=== PATIENT | male | born 1980 | race Caucasian/White ===

== ENCOUNTER → 2018-10-13 | Emergency (ER) | payer SELFPAY ==
[~2018-10-13] VITALS: Ht 165.1 cm; Wt 66.5 kg
[~2018-10-13] MED LIST: LORAZEPAM 2 MG INJ IM ONE
[2018-10-13 08:27] VITALS: Ht 165.1 cm; Wt 66.5 kg
--- NOTE | 2018-10-13 11:55 | ERD ---
ER Documentation Chief Complaint Chief Complaint c/o tingling, nausea, feeling uneasiness, bodyache. used Meth 2 hours [employer]. HPI This is a 38-year-old male who presents for evaluation of nausea and anxiety this is in the setting of using methamphetamine about 2 hours ago. He denies any other drug use, he has not had a fever, he denies abdominal pain. ROS All systems reviewed and are negative except as per history of present illness. Medications Home Meds No Active Prescriptions or Reported Meds Allergies Allergies: Coded Allergies: No Known Allergy (Unverified , 10/13/18) PMhx/Soc Medical and Surgical Hx: pt denies Medical Hx, pt denies Surgical Hx Hx Alcohol Use: Yes Hx Substance Use: Yes Hx Tobacco Use: Yes Smoking Status: Current some day smoker Physical Exam Vitals Vital Signs Date Temp Pulse Resp B/P (MAP) Pulse Ox O2 O2 Flow FiO2 Time Delivery Rate 10/13/18 83 18 107/89 96 Room Air 11:23 (95) 10/13/18 98.1 104 20 131/81 99 08:27 (98) Physical Exam Const: Anxious disheveled appearing Head: Atraumatic Eyes: Normal Conjunctiva ENT: Normal External Ears, Nose and Mouth. Neck: Full range of motion. No meningismus. Resp: Clear to auscultation bilaterally, no wheezes rales or rhonchi Cardio: Regular rate and rhythm, no murmurs Abd: Soft, non tender, non distended, no rebound or guarding. Normal bowel sounds Skin: No petechiae or rashes Back: No midline or flank tenderness Ext: No cyanosis, or edema Neur: Awake and alert Psych: Normal Mood and Affect Results 24 hrs Current Medications Medications Dose Sig/Kassandra Start Time Status Last (Trade) Ordered Route PRN Stop Time Admin Dose Reason Admin Lorazepam 1 mg ONCE ONCE 10/13/18 DC 10/13/18 (Ativan) IM 09:00 09:10 10/13/18 09:01 Procedures/MDM 38-year-old male presents for evaluation of methamphetamine intoxication, patient initially appeared anxious, he was given benzodiazepines for symptomatic care and felt significantly better, on reevaluation, he was sleeping and comfortable in no distress. He denies any chest pain. He felt comfortable with discharge home, he states that he is currently living with his sister, at discharge, he was ambulatory with steady gait and in no distress. Departure Diagnosis: Primary Impression: Methamphetamine abuse Condition: Stable LEYDA VARELA MD Oct 13, 2018 11:55
[2018-10-13 13:22] VITALS: BP 110/70; PULSE 80; RESP 18
== END | disposition home or self-care (01) ==
LOC: E/R 08:24
DX: F15.10 Other stimulant abuse, uncomplicated (principal); F17.210 Nicotine dependence, cigarettes, uncomplicated
CPT/HCPCS: 96372; 99284; J2060